=== PATIENT | male | born 1995 | race Native Hawaiian/Other Pacific Islander ===

== ENCOUNTER 2018-06-30 19:00 | Emergency (ER) | payer OTHER ==
--- NOTE | 2018-06-30 19:42 | ED PDOC ---
HPI: SOB/CHF/COPD Time Seen by Provider: 06/30/18 19:20 Chief Complaint (Nursing): Palpitations Chief Complaint (Provider): SoB and palpitations History Per: Patient History/Exam Limitations: no limitations Additional Complaint(s): 22 y/o M with no PMH who presents with shortness of breath and palpitations that began 1hr ago after smoking marijuana. Patient states that he began having some shortness of breath while smoking and then had palpitations, nausea and some lightheadedness. He was breathing rapidly and became concerned that he might be having a heart attack. Pt states that he has used marijuana in the past and has never had such a reactions. Denies any chest pain, dizziness, or SOB currently. Past Medical History Reviewed: Historical Data, Nursing Documentation, Vital Signs Vital Signs: Last Vital Signs Temp 98.7 F 06/30/18 19:07 Pulse 148 H 06/30/18 19:07 Resp 20 06/30/18 19:07 BP 174/82 H 06/30/18 19:07 Pulse Ox 99 06/30/18 19:07 - Medical History PMH: No Chronic Diseases - Family History Family History: States: Unknown Family Hx - Allergies Allergies/Adverse Reactions: Allergies Allergy/AdvReac Type Severity Reaction Status Date / Time No Known Allergies Allergy Verified 06/30/18 19:07 Review of Systems Constitutional: Negative for: Fever, Chills Cardiovascular: Positive for: Palpitations. Negative for: Chest Pain Respiratory: Positive for: Shortness of Breath Gastrointestinal: Positive for: Nausea. Negative for: Vomiting, Abdominal Pain Physical Exam - Reviewed Nursing Documentation Reviewed: Yes Vital Signs Reviewed: Yes - Physical Exam Appears: Positive for: Non-toxic Skin: Positive for: Normal Color Neck: Positive for: Normal Cardiovascular/Chest: Positive for: Regular Rate, Rhythm, Tachycardia Respiratory: Positive for: Normal Breath Sounds Gastrointestinal/Abdominal: Positive for: Normal Exam Neurologic/Psych: Positive for: Alert, Oriented - Laboratory Results Result Diagrams: 06/30/18 19:45 06/30/18 19:45 - ECG O2 Sat by Pulse Oximetry: 99 Medical Decision Making Medical Decision Making: EKG: sinus, HR 117, no ischemic change. CBC, CMP, Trop Patient refusing CXR, stating that he wanted to make sure that he was not having a heart attack. He is not feeling SOB at the moment. Patient endorsed to PA Benzing pending lab results and dispo Disposition - Clinical Impression Clinical Impression: Palpitations - Patient ED Disposition Is Patient to be Admitted: Transfer of Care (ANKITA Lua) - Disposition Disposition: Transfer of Care Disposition Time: 20:05 Condition: FAIR Forms: [facility] (Nauruan)
[2018-06-30 19:58] LABS: BASO # 0.1 K/uL (0.0-0.2); BASO % 0.7 % (0.0-2.0); EOS % 0.1 % (0.0-4.0); HEMOGLOBIN 15.4 g/dL (12.0-18.0); LYMPH # 1.1 K/uL (1.0-4.3); LYMPH % 13.5 % (20.0-40.0); MEAN CELL VOLUME 89.2 fl (80.0-94.0); MEAN CORPUSCULAR HEMOGLOBIN 31.8 pg (27.0-31.0); MEAN CORPUSCULAR HGB CONC 35.7 g/dL (33.0-37.0); MEAN PLATELET VOLUME 7.3 fl (7.2-11.7); MONO # 0.3 K/uL (0.0-0.8); MONO % 4.3 % (0.0-10.0); NEUT # 6.6 K/uL (1.8-7.0); NEUT % 81.4 % (50.0-75.0); NRBC % 0.1 % (0.0-0.0); RBC 4.85 Mil/uL (4.40-5.90); RED CELL DISTRIBUTION WIDTH 12.9 % (11.5-14.5); WHITE BLOOD COUNT 8.1 K/uL (4.8-10.8)
[2018-06-30 20:07] LABS: ALB/GLOB RATIO 1.3 (1.0-2.1); ALBUMIN 4.7 g/dL (3.5-5.0); AST/SGOT 34 U/L (17-59); BLOOD UREA NITROGEN 16 mg/dl (9-20); CALCIUM 9.9 mg/dL (8.4-10.2); GFR NON-AFRICAN AMERICAN > 60
[2018-06-30 20:13] LABS: ALT/SGPT 56 U/L (21-72)
[2018-06-30 20:29] VITALS: O2SAT 98
--- NOTE | 2018-06-30 21:00 | ED PDOC ---
- Laboratory Results Result Diagrams: 06/30/18 19:45 06/30/18 19:45 Lab Results: Troponin I < 0.0120 ng/mL (0.00-0.120) 06/30/18 19:45 Total Bilirubin 0.5 mg/dl (0.2-1.3) 06/30/18 19:45 AST 34 U/L (17-59) 06/30/18 19:45 ALT 56 U/L (21-72) 06/30/18 19:45 Alkaline Phosphatase 91 U/L (38-126) 06/30/18 19:45 Total Protein 8.2 G/DL (6.3-8.2) 06/30/18 19:45 Albumin 4.7 g/dL (3.5-5.0) 06/30/18 19:45 Globulin 3.5 gm/dL (2.2-3.9) 06/30/18 19:45 Albumin/Globulin Ratio 1.3 (1.0-2.1) 06/30/18 19:45 - ECG O2 Sat by Pulse Oximetry: 98 Medical Decision Making Medical Decision Making: Patient received from previous provider. I concur with prior findings. Data reviewed and patient disposition arranged as noted. On re-evaluation the patient is resting comfortably and his HR is under 86bpm The results and limitations of this evaluation including the need for possible further care, treatment, and testing were discussed. Follow-up with your primary care physician WITHOUT FAIL, or if unable to do so return to the emergency department. These instructions were given to the patient who was given the opportunity to ask questions and verbalized understanding. Patient received written and verbal instructions regarding this condition. The patient is stable for discharge Disposition Doctor Will See Patient In The: Office Counseled Patient/Family Regarding: Studies Performed, Diagnosis, Need For Followup - Clinical Impression Clinical Impression: Palpitations - POA Present On Arrival: None - Disposition [facility]errals: [facility] [Outside] Disposition: Routine/Home Disposition Time: 21:07 Condition: STABLE Instructions: Palpitations (DC) Forms: [facility] (Croatian)
[2018-06-30 21:33] VITALS: RESP 15
[2018-06-30 21:34] VITALS: BP 117/79; PULSE 81; TEMP 98.2
--- NOTE | 2018-07-01 19:46 | CARD ---
APPROVED REPORT Date of service: 06/30/2018 EKG Measurement Heart [id number] <Conclusion> Sinus tachycardia Incomplete right bundle branch block Borderline ECG
== END 2018-06-30 21:17 | disposition home or self-care (01) ==
LOC: H.ER 19:00
DX: R00.2 Palpitations (principal); F12.90 Cannabis use, unspecified, uncomplicated